=== PATIENT | female | born 1975 | race Caucasian/White ===

== ENCOUNTER 2016-09-10 01:28 | Emergency (ER) | payer MEDICAID, OTHER ==
[~2016-09-10] VITALS: Ht 160 cm; Wt 52.9 kg
[~2016-09-10 01:28] MED LIST: ROBA750T PO; SERO400T PO
[2016-09-10 01:41] VITALS: BP 145/82; PULSE 72; RESP 18; TEMP 98.2; O2SAT 99
[2016-09-10 02:01] LABS: BLOOD, URINE LARGE (NEG); GLUCOSE,URINE NEG (NEG); KETONE, URINE NEG (NEG); NITRITE,URINE NEG (NEG); PH, URINE 5.5 (5.0-8.5)
[2016-09-10 02:08] LABS: METHOD OF COLLECTION CLEAN CATCH; URINE COLOR YELLOW (YELLW/STRAW)
[2016-09-10 02:11] LABS: BACTERIA, URINE MANY /hpf; COMMENT (UR) CULTURE INDICATED; CULTURE IF INDICATED CULTURE INDICATED; RBC, URINE 0-3 /hpf (0-3); SQUAMOUS EPITHELIAL CELL URINE >8 /hpf (0-5); WBC, URINE 0-2 /hpf (0-5)
--- NOTE | 2016-09-10 02:28 | PD ---
HPI Chief Complaint: Pain: Acute or Chronic Time Seen by Provider: 02:23 Travel History International Travel<30 days: No Contact w/Intl Traveler<30days: No Traveled to known affect area: No History of Present Illness HPI The patient is a 41-year-old female that states she feels an air bubble in her left temporal area since yesterday. She states when she turns her head back and forth she can feel it and year. She says she does not have any ear pain and denies any hearing loss. She also mentions bilateral breast pain for one week that was "severe" but this has resolved completely now. She denies any pain or swelling in the breasts. PFSH Past Medical History Anemia: Yes Depression: Yes Diabetes: No Diminished Hearing: No Immunizations Current: Yes Tetanus Vaccination: Unknown Influenza Vaccination: No ?: Not LMP: Jul Menopausal: No : 4 Para: 3 : 1 Past Surgical History Section: Yes (X's 1) Social History Alcohol Use: No Tobacco Use: Yes (Occ.) Substance Use: No Allergies-Medications (Allergen,Severity, Reaction): Coded Allergies: Diflucan (Verified Allergy, Severe, Rash, 09/10/16) Amoxicillin (Verified Adverse Reaction, Severe, Yeast infection, 09/10/16) Reported Meds & Prescriptions Reported Meds & Active Scripts Active Reported Seroquel (Quetiapine Fumarate) 400 Mg Tab 600 Mg PO DAILY Review of Systems Except as stated in HPI: all other systems reviewed are Neg Physical Exam Narrative GENERAL: The patient is anxious, alert, oriented 3 and in no apparent distress. Her vital signs show blood pressure 145/82 but otherwise normal. SKIN: Warm and dry. HEAD: Atraumatic. Normocephalic. EYES: Pupils equal and round. No scleral icterus. No injection or drainage. ENT: No nasal bleeding or discharge. Mucous membranes pink and moist. Both tympanic membranes and canals are normal. NECK: Trachea midline. No JVD. There is no neck tenderness nor is or any TMJ tenderness. CARDIOVASCULAR: Regular rate and rhythm. No murmur appreciated. RESPIRATORY: No accessory muscle use. Clear to auscultation. Breath sounds equal bilaterally. GASTROINTESTINAL: Abdomen soft, non-tender, nondistended. Hepatic and splenic margins not palpable. MUSCULOSKELETAL: No obvious deformities. No clubbing. No cyanosis. No edema. NEUROLOGICAL: Awake and alert. No obvious cranial nerve deficits. Motor grossly within normal limits. Normal speech and gait. PSYCHIATRIC: Appropriate mood and affect; insight and judgment normal. Data Data Last Documented VS Vital Signs Date Time Temp Pulse Resp B/P Pulse Ox O2 Delivery O2 Flow Rate FiO2 09/10/16 02:46 76 18 128/64 100 Room Air 09/10/16 01:41 98.2 Orders Urinalysis - C+S If Indicated (09/10/16 01:52) Ed Urine Pregnancytest Poc (09/10/16 01:52) Urine Culture (09/10/16 01:50) Ct Brain W/O Iv Contrast(Rout) (09/10/16 02:23) Labs Laboratory Tests Test 09/10/16 01:50 Urine Collection Type CLEAN CATCH Urine Color YELLOW Urine Turbidity SLIGHT Urine pH 5.5 Urine Specific [place] 1.015 Urine Protein NEG mg/dL Urine Glucose (UA) NEG mg/dL Urine Ketones NEG mg/dL Urine Occult Blood LARGE Urine Nitrite NEG Urine Bilirubin NEG Urine Leukocyte Esterase SMALL Urine RBC 0-3 /hpf Urine WBC 0-2 /hpf Urine Squamous Epithelial >8 /hpf Cells Urine Bacteria MANY /hpf Urine Yeast (Budding) FEW Microscopic Urinalysis Comment CULTURE INDICATED MDM Medical Decision Making Medical Screen Exam Complete: Yes Emergency Medical Condition: Yes Medical Record Reviewed: Yes Interpretation(s) The urine test is negative. The urine shows large occult blood, small leukocyte Estrace with many bacteria and culture is indicated. The CT scan of the brain is negative. Differential Diagnosis Anxiety, conversion reaction, serous otitis media, perforated tympanic membrane Narrative Course The CT scan was done because the patient was convinced she had a bubble in her head. This bubble may be in the left ear but I cannot see any air-fluid level behind the tympanic membrane. The patient states it is not in the year it is in the left temporal region. Impression: Bubble sensation etiology undetermined Plan: The patient should follow-up with a primary care physician. This may be a conversion reaction. Diagnosis Primary Impression: Conversion reaction Additional Instructions: Follow-up with your primary care physician. Take the CT scan results to him. Disposition: 01 DISCHARGE HOME Condition: Stable Salbador Bryan MD Sep 10, 2016 02:28
[2016-09-10 02:46] VITALS: BP 128/64; PULSE 76; RESP 18; O2SAT 100
--- NOTE | 2016-09-10 03:00 | RADHPO ---
EXAM DATE/TIME: 09/10/2016 02:36 [facility] COMPARISON: No previous studies available for comparison. INDICATIONS : Cephalgia. RADIATION DOSE: 62.62 CTDIvol (mGy) MEDICAL HISTORY : Renal calculi. SURGICAL HISTORY : section. ENCOUNTER: Initial ACUITY: 2 days PAIN SCALE: 1/10 LOCATION: Left temporal TECHNIQUE: Multiple contiguous axial images were obtained of the head. Using automated exposure control and adj ustment of the mA and/or kV according to patient size, radiation dose was kept as low as reasonably a chievable to obtain optimal diagnostic quality images. FINDINGS: CEREBRUM: The ventricles are normal for age. No evidence of midline shift, mass lesion, hemorrhage or acute in farction. No extra-axial fluid collections are seen. POSTERIOR FOSSA: The cerebellum and brainstem are intact. The 4th ventricle is midline. The cerebellopontine angle i s unremarkable. EXTRACRANIAL: The visualized portion of the orbits is intact. SKULL: The calvaria is intact. No evidence of skull fracture. CONCLUSION: Normal examination. Enoch Carrillo MD on September 10, 2016 at 2:57 Board Certified Radiologist. This report was verified electronically.
== END 2016-09-10 03:25 | disposition home or self-care (01) ==
LOC: PHED 01:28
DX: F44.9 Dissociative and conversion disorder, unspecified (principal); N64.4 Mastodynia; D64.9 Anemia, unspecified; B96.89 Other specified bacterial agents as the cause of diseases classified elsewhere
CPT/HCPCS: 70450; 81001; 84703; 87086